=== PATIENT | female | born 1930 | race Caucasian/White ===

== ENCOUNTER 2019-09-16 16:11 | Inpatient (IN) | payer MEDICARE ==
[~2019-09-16] VITALS: Ht 162.6 cm; Wt 74.4 kg
--- NOTE | 2019-09-16 16:15 | NUR ---
PT BIB STAFF FROM [facility] C/O AGGRESSIVE BEHAVIOR TOWARDS STAFF, PT IS AAOX3, NOT IN RESPIRATORY DISTRESS, HOOKED TO MONITOR, KEPT RESTED AND COMFORTABLE, WILL CONTINUE TO MONITOR.
--- NOTE | 2019-09-16 16:29 | NUR ---
SEEN AND EXAMINED BY
[2019-09-16 17:11] LABS: BASOPHILS # (AUTO) 0.1 /CMM (0.0-0.2); BASOPHILS % (AUTO) 0.9 % (0.0-2.0); EOSINOPHILS % (AUTO) 1.8 % (0.0-6.0); HEMATOCRIT 36 % (33-45); HEMOGLOBIN 11.8 g/dL (11.5-14.8); LYMPHOCYTES # (AUTO) 1.7 /CMM (0.8-4.8); MEAN CORPUSCULAR HGB CONC 33 g/dl (31.0-36.0); MEAN CORPUSCULAR VOLUME 101 fL (82-100); MONOCYTES % (AUTO) 16.8 % (2.0-12.0); NEUTROPHILS # (AUTO) 3.3 /CMM (1.8-8.9); NEUTROPHILS % (AUTO) 52.5 % (43.0-81.0); PLATELET COUNT (AUTO) 231 /CMM (150-450); RED BLOOD CELL COUNT(AUTO) 3.57 MIL/uL (4.0-5.2); WHITE BLOOD COUNT (AUTO) 6.2 K/uL (4.3-11.0)
[2019-09-16 17:21] LABS: CALCIUM, SERUM 8.6 mg/dL (8.5-10.1); CARBON DIOXIDE 28 mmol/L (21-32); CHLORIDE 103 mmol/L (98-107); CREATININE 0.9 mg/dL (0.6-1.3); GLUCOSE 106 mg/dL (74-106); POTASSIUM 4.3 mmol/L (3.5-5.1); SODIUM SERUM 138 mmol/L (136-145); UREA NITROGEN, BLOOD 17 mg/dL (7-18)
--- NOTE | 2019-09-16 17:31 | NUR ---
GPS 213-B
[2019-09-16 17:36] LABS: ACETAMINOPHEN 0 ug/ml (10-30); ALANINE AMINOTRANSFERASE 17 U/L (12-78); ALBUMIN 3.2 g/dL (3.4-5.0); ALCOHOL, BLOOD < 3 mg/dL (0-0); ALKALINE PHOSPHATASE 67 U/L (46-116); ASPARTATE AMINOTRANSFERASE 16 U/L (15-37); BILIRUBIN,DIRECT 0.1 mg/dL (0.0-0.2); BILIRUBIN,TOTAL 0.5 mg/dL (0.2-1.0); SALICYLATE 0.7 mg/dL (2.8-20.0)
--- NOTE | 2019-09-16 17:41 | NUR ---
URINE SPECIMEN COLLECTED AND SENT TO LAB.
[2019-09-16 17:54] LABS: APPEARANCE,URINE Cloudy (CLEAR); BILIRUBIN,URINE Negative (NEGATIVE); BLOOD, URINE Trace-lysed Ery/uL (NEGATIVE); COLOR,URINE Yellow (YELLOW); KETONES,URINE Negative (NEGATIVE); LEUKOCYTE ESTERASE ,URINE Moderate (NEGATIVE); NITRITE, URINE Negative (NEGATIVE); PROTEIN,URINE Negative (NEGATIVE); UGLUCOSE Negative (NEGATIVE); UROBILINOGEN,URINE 0.2 EU/dL (0.2)
[2019-09-16 18:03] LABS: BACTERIA,URINE Many /HPF (None Seen); SQUAMOUS EPITHELIAL CELL,UR Few /HPF (None Seen)
[2019-09-16 18:04] LABS: RBC,URINE 0-2 /HPF (0-2); WBC,URINE 21-50 /HPF (0-3)
[2019-09-16 18:06] LABS: NEUTROPHILS % (MANUAL) 53 (42-76)
[2019-09-16 18:07] LABS: EOSINOPHILS % (MANUAL) 1 % (0-4); LYMPHOCYTES % (MANUAL) 30 % (16-48); MONOCYTES % (MANUAL) 16 % (0-11.0)
--- NOTE | 2019-09-16 19:00 | NUR ---
RAISA ON THE WAY TO WRITE [id number]
--- NOTE | 2019-09-16 19:17 | NUR ---
TOOK OVER PT CARE, PT PLACED ON MONITOR AND PULSE OX. VSS.
--- NOTE | 2019-09-16 19:22 | NUR ---
AWAITING CRISIS TEAM FOR HOLD PLACEMENT.
[2019-09-16] MEDS ORDERED: VITA1TAB56 PO (20:17)
[2019-09-16] MEDS ORDERED: ACET-2605 PO (20:17)
[2019-09-16] MEDS ORDERED: MULT-447 PO (20:17)
[2019-09-16] MEDS ORDERED: MELA5TAB PO (20:17)
--- NOTE | 2019-09-16 20:39 | NUR ---
REPORT GIVEN TO GPS. PT TRANSFERED.
[2019-09-16] MEDS ORDERED: MAGNESIUM HYDROXIDE 30 ML UDC PO PRN (21:00)
[2019-09-16] MEDS ORDERED: ACETAMINOPHEN 325 MG TABLET PO PRN (21:00)
[2019-09-16] MEDS ORDERED: BLOOD SUGAR DIAGNOSTIC 1 EACH STRIP IN ONE (21:00)
[2019-09-16] MEDS ORDERED: MAG HYDROX/AL HYDROX/SIMETH 30 ML UDC PO PRN (21:00)
--- NOTE | 2019-09-16 21:00 | NUR ---
GPS SUPPORT TECHNICIAN NOTES: ADMITTED 88 Y/O FEMALE. PT ADMITTED FROM [facility]. PT ADMITTED FROM [facility] TO GPS ON A 5150 GD AND DTO. PER HOLD, PT WAS BROUGHT IN BY STAFF FROM [facility] DUE TO INCREASE AGGRESSION, STRIKING OUT ON STAFF, THROWING COFFEE TO OTHER STAFF AT THE FACILITY, REFUSING CARE, DESCRIPTIVE, NON DIRECTABLE, DELUSIONAL MAKING FALSE ACCUSATION, NON COMPLAINT WITH MEDICATION, AND CONFUSED. UPON FACE TO FACE ASSESSMENT PT IS ALERT ORIENTED X 1-2, UNCOOPERATIVE, ANGRY, DEPRESSED, FORGETFUL, CONFUSED, DISORGANIZED, NEEDY, EASILY AGITATED, AND GUARDED. PT STATED SHE DOES NOT KNOW WHY SHE IS HERE AND DOESN'T THINK SHE SHOULD BE HERE. PT OVERESTIMATES HERSELF IN REGARDS TO WALKING ON HER OWN OR BY HERSELF. PT IS AMBULATORY WITH UNSTEADY GAIT. PT CONSULT ORDERED FOR EVALUATION. BED LOCKED, LOW, AND 2 SIDE RAILS UP FOR SAFETY. BED ALARM ON. PT ROMERO SI/ HI AT THIS TIME. PT STATED SHE HAS NO FAMILY AND SHE HAS SOME FRIENDS BUT REFUSES TO SAY THE NAMES. PT UNABLE TO SIGN NECESSARY PAPER WORK DUE TO REFUSAL. ENVIRONMENTAL SAFETY CHECK DONE Q15. ENCOURAGE PT VERBALIZE FEELINGS AND CONCERNS TO STAFF. ORIENTED PT TO THE UNIT. [facility] NOTIFIED OF ADMISSION AND FOR MED RECON. DR WARD AWARE OF PTS ADMISSION WELL. BELONGING AND CONTRABAND WERE DONE. NURSING ASSESSMENT WERE DONE. NURSING ASSESSMENT DONE. PT REFUSED SKIN ASSESSMENT AND PICTURES. PT STATED, "I DONT WANT YOU TO TOUCH ME LEAVE ME ALONE NOW!" EXPLAIN RISKS AND BENEFITS. PT STILL REFUSED X3. PICTURE OF PT FACE WERE FILED IN PT CHERT FOR IDENTIFICATION. PT RIGHTS DISCUSSED BY SENIOR SOFTWARE PROJECT MANAGER. PROVIDED PT WITH HANDBOOK AND MED GUIDE, VITALS TAKEN WNL. NO S/S OF RESP DISTRESS. INITIAL BLOOD SUGAR CHECK DONE. BREATHING EVEN AND UNLABORED. NO S/S OF SOB. CONTINUE TO MONITOR.
[2019-09-16 23:59] VITALS: BP 167/81
[2019-09-17 07:49] LABS: CREATININE 0.8 mg/dL (0.6-1.3)
[2019-09-17 07:54] LABS: CHOLESTEROL 151 mg/dL (<200); HDL CHOLESTEROL 61 mg/dL (40-60); LDL 81 mg/dL (0-99); TRIGLYCERIDES 68 mg/dL (30-150)
[2019-09-17] MEDS: VITAMIN B COMP W-C 1 TAB TABLET PO SCH (08:20)
[2019-09-17] MEDS: MULTIVIT W/MINERALS 1 TAB TABLET PO SCH (08:20)
--- NOTE | 2019-09-17 15:04 | NUR ---
SNF Contact: FREDERICK called Krissy ([phone]) from [facility] who confirmed that the pt can return to the facility once she is stable for discharge.
--- NOTE | 2019-09-17 15:54 | NUR ---
Initial Discharge Plan: Pt currently resides at [facility] located at [address] [place] [address]; ([phone]). Per pt, she is too confused to state where she would like to be discharged. SW will work with the pt and the MD regarding appropriate discharge planning. SW will form a safe and proper discharge.
--- NOTE | 2019-09-17 16:23 | NUR ---
Individual Intervention: SW attempted to have an individual therapy with the pt but the pt is hard of hearing, disorganized, confused and disoriented. Pts speech is tangential and the pt is rambling and nonsensical. Pt is deemed not appropriate for therapy at this time.
[2019-09-17] MEDS ORDERED: Medication Not On Formulary EA (Melatonin 10 MG) PO SCH (18:00)
[2019-09-17] MEDS: RIVASTIGMINE TARTRATE 1.5 MG CAPSULE PO SCH (21:00)
[2019-09-17] MEDS: risperiDONE 0.25 MG TABLET PO SCH (21:00)
--- NOTE | 2019-09-17 21:35 | NUR ---
GPS RN NOTE: MEDICATION REFUSAL PT. REFUSED SCHEDULED 2100 MEDICATIONS, EXELON 1.5 MG PO AND RISPERDAL 0.25 MG PO. PT. STATES " I DON'T NEED THOSE" EDUCATION PROVIDED. EXPLAINED RISKS AND BENEFITS. OFFERED 3X, PT. STILL REFUSED. WILL CONTINUE TO MONITOR
[2019-09-18 08:00] VITALS: BP 133/78
--- NOTE | 2019-09-18 08:00 | NUR ---
RECEIVED PATIENT IN HER ROOM, RESTLESS IN BED WALKING WITH UNSTEADY GAIT INSIDE HER ROOM WITH ASSIST.HOLDING ON TO THE BED AND TABLE.PT IS HARD OF HEARING WHICH IS THE REAON WHY SHE SPEAKS TOO LOUD DISTURBING HER ROOMATE., NO S/S OF ANY DISTRESS NOTED, NO C/O PAIN OR ANY DISCOMFORT. A&OX1, CONFUSED,DISORIENTED, DISORGANIZED, FORGETFUL, REDIRECTABLE, CALM, COOPERATIVE, MED COMPLIANT, DENIES SI/HI AT THIS TIME. FALL PRECAUTIONS IMPLEMENTED.NEEDS ATTENDED AND ANTICIPATED. WILL CONTINUE TO MONITOR Q15 MINS FOR SAFETY AND BEHAVIOR.
[2019-09-18] MEDS: VITAMIN B COMP W-C 1 TAB TABLET PO SCH (08:47)
[2019-09-18] MEDS: RIVASTIGMINE TARTRATE 1.5 MG CAPSULE PO SCH ×2 (08:48→21:51)
[2019-09-18] MEDS: MULTIVIT W/MINERALS 1 TAB TABLET PO SCH (08:48)
[2019-09-18] MEDS: LORAZEPAM 0.5 MG TABLET PO PRN (08:48)
[2019-09-18] MEDS: risperiDONE 0.25 MG TABLET PO SCH ×2 (08:48→21:51)
[2019-09-18] MEDS: NITROFURANTOIN/NITROFURAN MAC 100 MG CAPSULE PO SCH ×2 (11:45→21:58)
--- NOTE | 2019-09-18 12:06 | NUR ---
INDIVIDUAL INTERVENTION: SW attempted to have an individual therapy with the pt at bedside. However, SW was unable to engage pt in conversation due to pt being hard of hearing, disorganized, confused and disoriented. Pts speech is tangential and the pt is rambling and nonsensical. Pt is deemed not appropriate for therapy at this time.
[2019-09-18 15:59] VITALS: BP 150/73
[2019-09-18 20:00] VITALS: BP 143/67
--- NOTE | 2019-09-18 21:59 | NUR ---
GPS RN NOTE ADMINISTERED NITROFURANTOIN 100MG 1 CAP PO ORDERED. WON'T SCAN SO ENTERED MANUALLY.
--- NOTE | 2019-09-19 07:34 | NUR ---
GPS RN OPENING NOTE: RECEIVED PATIENT IN BED TALKING TO SELF. APPEARS TO HAVE AUDITORY HALLUCINATIONS SHE SOUNDS LIKE SHE IS HAVING CONVERSATION WITH SOMEONE. PATIENT IS UNCOOPERATIVE, BELLIGERENT, AND EASILY AGITATED. BREATHING IS EVEN AND UNLABORED. NO SIGNS OF PHYSICAL DISTRESS. BED IN LOCKED AND LOW POSITION WITH 2 SIDE RAILS UP FOR SAFETY. WILL CONTINUE TO MONITOR Q15 FOR MOOD, SAFETY AND BEHAVIOR.
[2019-09-19 08:00] VITALS: BP 161/78
[2019-09-19] MEDS: NITROFURANTOIN/NITROFURAN MAC 100 MG CAPSULE PO SCH ×2 (09:00→21:50)
[2019-09-19] MEDS: LORAZEPAM 0.5 MG TABLET PO PRN (09:11)
[2019-09-19] MEDS: VITAMIN B COMP W-C 1 TAB TABLET PO SCH (09:11)
[2019-09-19] MEDS: risperiDONE 0.25 MG TABLET PO SCH (09:11)
[2019-09-19] MEDS: MULTIVIT W/MINERALS 1 TAB TABLET PO SCH (09:11)
[2019-09-19] MEDS: RIVASTIGMINE TARTRATE 1.5 MG CAPSULE PO SCH ×2 (09:11→21:48)
--- NOTE | 2019-09-19 09:25 | NUR ---
unable to scan macrobid - Unknown [facility] number. Administered as ordered
[2019-09-19 16:00] VITALS: BP 150/81
[2019-09-19 20:00] VITALS: BP 155/82
[2019-09-19] MEDS: risperiDONE 1 MG TABLET PO SCH (21:48)
[2019-09-19] MEDS: TEMAZEPAM 7.5 MG CAPSULE PO PRN (22:14)
[2019-09-20 08:00] VITALS: BP 141/87
[2019-09-20] MEDS: risperiDONE 1 MG TABLET PO SCH ×2 (08:32→21:42)
[2019-09-20] MEDS: MULTIVIT W/MINERALS 1 TAB TABLET PO SCH (08:32)
[2019-09-20] MEDS: VITAMIN B COMP W-C 1 TAB TABLET PO SCH (08:32)
[2019-09-20] MEDS: NITROFURANTOIN/NITROFURAN MAC 100 MG CAPSULE PO SCH ×2 (08:33→21:43)
[2019-09-20] MEDS: RIVASTIGMINE TARTRATE 1.5 MG CAPSULE PO SCH ×2 (08:33→21:43)
--- NOTE | 2019-09-20 08:33 | NUR ---
RN NOTE- MACROBID 100 MG CAPSULE GIVEN AT THIS TIME. DOESN'T SCAN.
--- NOTE | 2019-09-20 09:00 | NUR ---
RN NOTE- PT AWAKE IN MICHELLE CHAIR, ALERT, ORIENTED TO PERSON PLACE. CONFUSED, IRRITABLE AT TIMES AND LAUGHING LOUD AND INAPPROPRIATELY WELL. PO INTAKE GOOD, GOOD EYE CONTACT, ASKS QUESTIONS PERTAINING TO STAY AND DURATION. DENYING SI HI AH VH. PT OVER ESTIMATES HER ABILITIES IN ADLS. REQUIRING STAND BY ASSIST W ALL.
[2019-09-20 16:00] VITALS: BP 136/81
[2019-09-20 19:58] VITALS: BP 150/76
[2019-09-20] MEDS: TEMAZEPAM 7.5 MG CAPSULE PO PRN (22:14)
[2019-09-21] MEDS: LORAZEPAM 0.5 MG TABLET PO PRN ×3 (07:42→21:23)
--- NOTE | 2019-09-21 07:43 | NUR ---
RN NOTE- PT AGITATED, GETTING UP ON HER OWN, NOT DIRECTABLE, YELLING.. ATIVAN 0.5 MG GIVEN. PLACED IN MICHELLE CHAIR
[2019-09-21 08:00] VITALS: BP 119/73
[2019-09-21] MEDS: MULTIVIT W/MINERALS 1 TAB TABLET PO SCH (08:37)
[2019-09-21] MEDS: VITAMIN B COMP W-C 1 TAB TABLET PO SCH (08:37)
[2019-09-21] MEDS: RIVASTIGMINE TARTRATE 1.5 MG CAPSULE PO SCH ×2 (08:37→21:20)
[2019-09-21] MEDS: NITROFURANTOIN/NITROFURAN MAC 100 MG CAPSULE PO SCH ×2 (08:38→21:20)
[2019-09-21] MEDS: risperiDONE 1 MG TABLET PO SCH ×2 (08:38→21:21)
--- NOTE | 2019-09-21 08:38 | NUR ---
RN NOTE- MACROBID 100MG CAP GIVEN. DOESN'T SCAN
--- NOTE | 2019-09-21 09:00 | NUR ---
RN NOTE- PT YELLING DIFFICULT AT START OF SHIFT. PT TRYING TO GET OOB AND WALK ON HER OWN. UNSAFE AND UNSTEADY. PO INTAKE GOOD. 100% MEAL CONSUMED. MED COMPLIANT. DENIES AL. PT OPPOSITIONAL TO CARE AND IRRITABLE. ATIVAN EFFECTIVELY DECREASE AGITATION
[2019-09-21 16:00] VITALS: BP 122/66
[2019-09-21 20:00] VITALS: BP 113/58
--- NOTE | 2019-09-21 21:24 | NUR ---
Pt agitated and yelling. Ativan 0.5 mg po prn given as ordered. Will continue to monitor.
[2019-09-21] MEDS: risperiDONE 0.25 MG TABLET PO SCH (22:00)
--- NOTE | 2019-09-21 22:23 | NUR ---
Post 1 hr Ativan effective. Pt calm. Refused new order medication Risperdal 0.75mg po. States, " I just took that med Risperdal 0.5 mg an hour ago". Offered x3 still refused. Risk and benefits explained. Will continue to monitor.
--- NOTE | 2019-09-22 07:24 | NUR ---
GPS RN NOTE: OPENING RECEIVED PATIENT UP IN MICHELLE CHAIR, AGITATED. ALERT AND ORIENTED X1-2. WEARING DIAPER. RASTA CARE RENDERED. DENIES SI/HI AND VAH. PATIENT BREATHING IS EVEN AND UNLABORED WITH EQUAL RISE AND FALL OF CHEST. SAFETY PRECAUTIONS IN PLACE - BED IN LOW AND LOCKED POSITION WITH 2 SIDE RAILS UP FOR SAFETY. WILL CONTINUE TO MONITOR Q15 FOR MOOD, SAFETY AND BEHAVIOR.
[2019-09-22 08:00] VITALS: BP 143/78
[2019-09-22] MEDS: VITAMIN B COMP W-C 1 TAB TABLET PO SCH (08:53)
[2019-09-22] MEDS: MULTIVIT W/MINERALS 1 TAB TABLET PO SCH (08:53)
[2019-09-22] MEDS: NITROFURANTOIN/NITROFURAN MAC 100 MG CAPSULE PO SCH ×2 (08:53→21:21)
[2019-09-22] MEDS: RIVASTIGMINE TARTRATE 1.5 MG CAPSULE PO SCH ×2 (08:53→21:21)
[2019-09-22] MEDS: risperiDONE 0.25 MG TABLET PO SCH ×2 (09:00→21:21)
--- NOTE | 2019-09-22 12:01 | NUR ---
INDIVIDUAL INTERVENTION: SW attempted to have an individual therapy with the pt at bedside. Pt was asleep and not easily aroused by verbal cues.
[2019-09-22 16:00] VITALS: BP 155/68
[2019-09-22 20:09] VITALS: BP 136/73
[2019-09-23 08:00] VITALS: BP 155/74
[2019-09-23] MEDS: RIVASTIGMINE TARTRATE 1.5 MG CAPSULE PO SCH ×2 (09:06→21:22)
[2019-09-23] MEDS: risperiDONE 0.25 MG TABLET PO SCH (09:06)
[2019-09-23] MEDS: VITAMIN B COMP W-C 1 TAB TABLET PO SCH (09:06)
[2019-09-23] MEDS: MULTIVIT W/MINERALS 1 TAB TABLET PO SCH (09:07)
[2019-09-23] MEDS: NITROFURANTOIN/NITROFURAN MAC 100 MG CAPSULE PO SCH (09:08)
--- NOTE | 2019-09-23 09:24 | NUR ---
FRIEND CONTACT: SW received a voicemail from pts family friend Isiah [phone] requesting an update on pts discharge plan. SW returned call and left a voicemail for callback.
[2019-09-23] MEDS ORDERED: Z GUARD REMEDY 2 OZ OINT TP PRN (11:00)
[2019-09-23] MEDS: LORAZEPAM 0.5 MG TABLET PO PRN (12:44)
--- NOTE | 2019-09-23 12:44 | NUR ---
RN NOTE- PT ATTEMPTING TO AMBULATE WITHOUT WALKER TO BR, TEARING OFF DIAPER, SCREAMING AT STAFF AND OPPOSITIONAL TO ALL CARE AND REDIRECTION. PLACED IN GERICHAIR AND PT CONTINUES YELLING. ATIVAN 0.5 MG GIVEN.
--- NOTE | 2019-09-23 15:19 | NUR ---
INDIVIDUAL INTERVENTION: Pt was sitting in a marleny-chair in the activity room. Pt was yelling saying nonsensical statements. Pt appeared agitated. Pt is confused, disorganized, and disoriented and has cognitive impairment. Pt is only alert and oriented to self.
[2019-09-23 16:00] VITALS: BP 144/77
--- NOTE | 2019-09-23 19:15 | NUR ---
GPS RN OPENING NOTE: PATIENT UP IN GERICHAIR. EASILY AGITATED. A&OX1, CONFUSED, DISORIENTED, DISORGANIZED, FORGETFUL, REDIRECTABLE, CALM, COOPERATIVE. DENIES SI/HI AT THIS TIME. FALL PRECAUTIONS IMPLEMENTED. ALL NEEDS ATTENDED AND ANTICIPATED. WILL CONTINUE TO MONITOR Q15 MINS FOR SAFETY AND BEHAVIOR.
[2019-09-23 20:19] VITALS: BP 139/75
[2019-09-23] MEDS: risperiDONE 1 MG TABLET PO SCH (21:22)
--- NOTE | 2019-09-23 22:20 | NUR ---
GPS RN NOTE: INSOMNIA PT. C/O UNABLE TO SLEEP. ADMINISTERED RESTORIL PO PRN. WILL CONTINUE TO MONITOR FOR SAFETY AND BEHAVIOR
[2019-09-23] MEDS: TEMAZEPAM 7.5 MG CAPSULE PO PRN (22:23)
[2019-09-24 08:00] VITALS: BP 138/56
[2019-09-24] MEDS: RIVASTIGMINE TARTRATE 1.5 MG CAPSULE PO SCH ×2 (08:46→21:51)
[2019-09-24] MEDS: MULTIVIT W/MINERALS 1 TAB TABLET PO SCH (08:46)
[2019-09-24] MEDS: VITAMIN B COMP W-C 1 TAB TABLET PO SCH (08:46)
[2019-09-24] MEDS: risperiDONE 1 MG TABLET PO SCH ×2 (09:40→21:51)
[2019-09-24 16:00] VITALS: BP 143/59
--- NOTE | 2019-09-24 16:08 | NUR ---
Friend Contact: SW received a voicemail from pts family friend, Isiah ([phone]), and the SW informed him on the pts current behaviors and the pts medications. SW also expressed to him that the discharge plan is for the pt to return to [facility]. Pts friend expressed that he wants to make sure that she is not discharged back to her apartment or to an alternative placement. SW stated that once there is a discharge plan he will be notified.
[2019-09-24] MEDS: TEMAZEPAM 7.5 MG CAPSULE PO PRN (23:11)
[2019-09-25 08:00] VITALS: BP 147/76
[2019-09-25] MEDS: VITAMIN B COMP W-C 1 TAB TABLET PO SCH (08:04)
[2019-09-25] MEDS: RIVASTIGMINE TARTRATE 1.5 MG CAPSULE PO SCH ×2 (08:04→21:42)
[2019-09-25] MEDS: MULTIVIT W/MINERALS 1 TAB TABLET PO SCH (08:04)
[2019-09-25] MEDS: risperiDONE 1 MG TABLET PO SCH ×2 (10:27→21:42)
--- NOTE | 2019-09-25 12:17 | NUR ---
Individual Intervention: SW met with the pt at bedside. Pt appeared agitated. Pt is confused, disorganized, and disoriented and has cognitive impairment. Pt is only alert and oriented to self.
[2019-09-25 16:00] VITALS: BP 127/57
[2019-09-25 20:15] VITALS: BP 126/60
[2019-09-25] MEDS: TEMAZEPAM 7.5 MG CAPSULE PO PRN (22:29)
[2019-09-26] MEDS: RIVASTIGMINE TARTRATE 1.5 MG CAPSULE PO SCH ×2 (08:30→21:09)
[2019-09-26] MEDS: MULTIVIT W/MINERALS 1 TAB TABLET PO SCH (08:30)
[2019-09-26] MEDS: VITAMIN B COMP W-C 1 TAB TABLET PO SCH (08:30)
[2019-09-26] MEDS: risperiDONE 1 MG TABLET PO SCH ×2 (10:06→21:09)
--- NOTE | 2019-09-26 13:21 | NUR ---
INDIVIDUAL INTERVENTION: SW attempted to have an individual therapy with the pt at bedside. Pt was asleep and not easily aroused by verbal cues.
[2019-09-26 16:03] VITALS: BP 121/59
[2019-09-26] MEDS: LORAZEPAM 0.5 MG TABLET PO PRN (16:08)
--- NOTE | 2019-09-26 16:10 | NUR ---
GPS/RN-NOTES PATIENT IN THE DAY ROOM NOTED WITH AGITATION, SCREAMING AND YELLING LOUD,UNABLE TO REDIRECT. ATIVAN 0.5MG P.O GIVEN PRN ORDER. WILL CONT. MONITORING FOR SAFETY AND BEHAVIOR.
[2019-09-26 20:00] VITALS: BP 129/62
[2019-09-27 08:00] VITALS: BP 116/58
[2019-09-27] MEDS: MULTIVIT W/MINERALS 1 TAB TABLET PO SCH (09:53)
[2019-09-27] MEDS: risperiDONE 1 MG TABLET PO SCH ×2 (09:53→21:48)
[2019-09-27] MEDS: VITAMIN B COMP W-C 1 TAB TABLET PO SCH (09:53)
[2019-09-27] MEDS: RIVASTIGMINE TARTRATE 1.5 MG CAPSULE PO SCH ×2 (09:53→21:48)
[2019-09-27] MEDS: LORAZEPAM 0.5 MG TABLET PO PRN ×2 (12:29→22:38)
--- NOTE | 2019-09-27 12:29 | NUR ---
GPS/RN-NOTES PATIENT IN THE ROOM NOTED WITH AGITATION,HITTING STAFF WITH BOTH HANDS, SCREAMING AND YELLING LOUD,UNABLE TO REDIRECT. ATIVAN 0.5MG P.O GIVEN PRN ORDER. WILL CONT. MONITORING FOR SAFETY AND BEHAVIOR.
--- NOTE | 2019-09-27 13:30 | NUR ---
GPS/RN-NOTES PATIENT STILL IN THE DAY ROOM,AWAKE,ALERT CALM NO ACUTE DISTRESS NOTED.
[2019-09-27 16:00] VITALS: BP 156/91
[2019-09-27 20:00] VITALS: BP 143/64
--- NOTE | 2019-09-27 22:39 | NUR ---
GPS-RN NOTE: SCREAMING/YELLING INTERMITTENTLY PATIENT IS ANXIOUS AND RESTLESS. WITH EPISODES OF GETTING UP AND DOWN IN BED. PATIENT REMAINS CONFUSED UNABLE TO FOLLOW SIMPLE DIRECTIONS. SCREAMING AND YELLING INTERMITTENTLY. ADMINISTERED ATIVAN 0.5MG PO ORDERED. WILL CONTINUE TO MONITOR FOR PT'S SAFETY.
[2019-09-28 08:00] VITALS: BP 150/94
[2019-09-28] MEDS: VITAMIN B COMP W-C 1 TAB TABLET PO SCH (08:24)
[2019-09-28] MEDS: RIVASTIGMINE TARTRATE 1.5 MG CAPSULE PO SCH ×2 (08:24→21:19)
[2019-09-28] MEDS: MULTIVIT W/MINERALS 1 TAB TABLET PO SCH (08:25)
[2019-09-28] MEDS: risperiDONE 1 MG TABLET PO SCH ×2 (10:01→21:19)
[2019-09-28 16:00] VITALS: BP 122/63
[2019-09-28] MEDS: LORAZEPAM 0.5 MG TABLET PO PRN ×2 (16:15→23:27)
--- NOTE | 2019-09-28 16:16 | NUR ---
GPS/RN-NOTES PATIENT IN THE DAY ROOM , SCREAMING AND YELLING LOUD,UNABLE TO REDIRECT. ATIVAN 0.5MG P.O GIVEN PRN ORDER. WILL CONT. MONITORING FOR SAFETY AND BEHAVIOR.
[2019-09-28 20:30] VITALS: BP 140/91
[2019-09-28] MEDS: TEMAZEPAM 7.5 MG CAPSULE PO PRN (21:20)
--- NOTE | 2019-09-28 21:21 | NUR ---
Pt unable to sleep. Least restrictive measures ineffective. Restoril 7.5 mg po prn given as ordered. Will continue to monitor.
--- NOTE | 2019-09-28 22:21 | NUR ---
Post 1 hr restoril effective. Pt asleep easy to arouse. Will continue to monitor.
--- NOTE | 2019-09-28 23:28 | NUR ---
Pt anxious and agitated. Least restrictive measures ineffective. Ativan 0.5 mg po prn given as ordered. Will continue to monitor.
--- NOTE | 2019-09-29 00:30 | NUR ---
Post 1 hr Ativan effective. Pt asleep in bed easy to arouse. Will continue to monitor.
[2019-09-29 08:00] VITALS: BP 145/76
[2019-09-29] MEDS: RIVASTIGMINE TARTRATE 1.5 MG CAPSULE PO SCH ×2 (08:39→21:37)
[2019-09-29] MEDS: VITAMIN B COMP W-C 1 TAB TABLET PO SCH (08:40)
[2019-09-29] MEDS: MULTIVIT W/MINERALS 1 TAB TABLET PO SCH (08:40)
--- NOTE | 2019-09-29 09:00 | NUR ---
RN NOTE- RECEIVED PATIENT IN BEED AWAKE,ALERT,NO ACUTE DISTRESS NOTED. NOTED PATIENT WITH EASILY ANGRY ,SCREAMING AND YELLING AT STAFF. NEEDS REDIRECTIONS AND REORIENTATIONS.COMPLIANT WITH MEDICATIONS. ALL NEEDS ATTENDED AND ANTICIPATED. WILL CONT. MONITORING Q15 MINS. FOR SAFETY AND BEHAVIOR.
[2019-09-29] MEDS: risperiDONE 1 MG TABLET PO SCH ×2 (10:05→21:36)
[2019-09-29 20:03] VITALS: BP 129/61
[2019-09-30 08:00] VITALS: BP 114/53
--- NOTE | 2019-09-30 09:00 | NUR ---
RN NOTE- PT SLEEPING EASILY AROUSABLE, CALM ON AWAKENING NO BEHAVIORAL ISSUES PO INTAKE MINIMAL THIS AM. MED COMPLIANT
[2019-09-30] MEDS: risperiDONE 1 MG TABLET PO SCH ×2 (09:27→21:00)
[2019-09-30] MEDS: RIVASTIGMINE TARTRATE 1.5 MG CAPSULE PO SCH ×2 (09:27→20:48)
[2019-09-30] MEDS: MULTIVIT W/MINERALS 1 TAB TABLET PO SCH (09:28)
[2019-09-30] MEDS: VITAMIN B COMP W-C 1 TAB TABLET PO SCH (09:28)
--- NOTE | 2019-09-30 09:38 | NUR ---
Facility Contact: FREDERICK contacted Krissy ([phone]), clinical coordinator from [facility], and informed her that a COVID test was never done for this pt. She stated that [facility] is necessary for a read[facility].
--- NOTE | 2019-09-30 09:39 | NUR ---
[facility] Contact: Regarding COVID 19 testing, SW called the [facility] COVID 19 line ([phone]) and spoke to Tonya who stated that they have a written rule regarding pts readmitting to facilities from hospitals requiring testing. She stated that the [facility] is allowing the facilities to make the decisions on what it is that they are requiring for a pt to return to their facility.
--- NOTE | 2019-09-30 09:41 | NUR ---
Facility Contact: FREDERICK contacted Krissy ([phone]), offensive coordinator from [facility], and informed her that she spoke to the [facility] employee relations representative on the COVID 19 line and was informed that the facility has the right to decide. Therefore, FREDERICK asked the pts nurse to request a COVID 19 test for readmission to their facility. FREDERICK informed her that this would delay the pts discharge.
--- NOTE | 2019-09-30 14:15 | NUR ---
Friend Contact: FREDERICK called pts family friend, Isiah ([phone]), and informed him that the pt was not discharged today due to the facility needing a COVID test. FREDERICK stated that she will call him when she has a discharge date.
[2019-09-30 16:00] VITALS: BP 100/60
--- NOTE | 2019-09-30 18:00 | NUR ---
COVID CULTURE RT NARES TAKEN BY THIS RN IN PT ROOM W PRODUCT MARKETING SPECIALIST AND RN ASSIST. SENT TO LAB
[2019-09-30 20:17] VITALS: BP 140/71
--- NOTE | 2019-10-01 06:53 | NUR ---
RN NOTES, NO SIGNIFICANTS CHANGE IN CONDITION, PATIENT COMPLAIN WITH CARE, NO DISRUPTIVE BEHAVIOR EXHIBITED, ADEQUATE HORS OF SLEEP, CONFUSED AT TIMES, WILL ENDORSED CONTINUITY OF CARE TO ONCOMING NURSE.
[2019-10-01 08:00] VITALS: BP_SYST 123; BP_SYST 131; BP_DIAS 57; BP_DIAS 59
[2019-10-01] MEDS: VITAMIN B COMP W-C 1 TAB TABLET PO SCH (08:42)
[2019-10-01] MEDS: MULTIVIT W/MINERALS 1 TAB TABLET PO SCH (08:42)
[2019-10-01] MEDS: RIVASTIGMINE TARTRATE 1.5 MG CAPSULE PO SCH ×2 (08:42→21:40)
[2019-10-01] MEDS: risperiDONE 1 MG TABLET PO SCH ×2 (10:04→21:40)
--- NOTE | 2019-10-01 13:07 | NUR ---
Facility Contact: FREDERICK contacted Krissy ([phone]), admissions director from [facility], and informed her that the pts COVID results are still pending.
--- NOTE | 2019-10-01 15:54 | NUR ---
Individual Counseling: SW met with the pt. in the activities room to engage in individual counseling. However, the pt. presented with agitation, is confused, and disorganized. Pt. not a candidate for counseling.
[2019-10-01 20:10] VITALS: BP 143/69
[2019-10-01] MEDS: TEMAZEPAM 7.5 MG CAPSULE PO PRN (22:12)
[2019-10-02 08:00] VITALS: BP 144/60
--- NOTE | 2019-10-02 09:20 | NUR ---
DISCHARGE NOTE: Pt will be discharged at 11:00am via facility transport to [facility] ([facility] located at [address] [place] [id number] . Pts family friend, Isiah ([phone]) has been notified via voicemail. Pts mood is euthymic with congruent affect. Pt denied visual/auditory hallucinations and denied suicidal/homicidal ideation. Pt will be under the care of Psychiatrist: Dr. Marce Galindo [address], [place] [address] [phone] and Instructional Specialist: Dr. Steward located at [address] [place] [address] [id number], [place] [address]; . The multidisciplinary exit care form was done, printed, signed, and given to the patient. Addendum: 10/02/19 at 1208 by JULES MACK FREDERICK received a call from the facility stating that pt will be picked up at 1500.
[2019-10-02] MEDS: RIVASTIGMINE TARTRATE 1.5 MG CAPSULE PO SCH (09:50)
[2019-10-02] MEDS: MULTIVIT W/MINERALS 1 TAB TABLET PO SCH (09:50)
[2019-10-02] MEDS: VITAMIN B COMP W-C 1 TAB TABLET PO SCH (09:50)
[2019-10-02] MEDS: risperiDONE 1 MG TABLET PO SCH (09:50)
--- NOTE | 2019-10-02 10:26 | NUR ---
Dr. Taveras gave an order to D/C hold and D/C to [facility] ([facility]) and to continue same meds including prn and follow up with the psychiatrist Dr. Marce Mendoza at [address], [place] [address] with the tel# [phone] and to follow up with the buggyman Dr. Steward at [address] [place] [address] [id number], [place] [address] with the tel# [phone]. Pt. admitted on 5150 for DTO and GD. Addendum: 10/02/19 at 1541 by JENNIFER ARIZA RN Pt. without distress, denies suicidal and homicidal and stable for discharge.
--- NOTE | 2019-10-02 15:20 | NUR ---
GPS/RN-NOTES PATIENT DISCHARGE TO [facility] TODAY. AND MEHUL JOYA AWARE AND AGREED OF THE DISCHARGE. PATIENT DID NOT VERBALIZE SI/HI,DENIES VISUAL/AUDITORY HALLUCINATIONS AT THE TIME OF DISCHARGE. REPORT WAS GIVEN TO [facility] ( [facility]).PATIENT LEFT THE UNIT ALERT ORIENTED X2 NEED ASSIST WITH AMBULATION. PATIENT WAS DECATOR OPERATOR BY FACILITY TRANSPORTATION WITH TWO STAFF ASSIST . PATIENT LEFT WITH ALL BELONGINGS WAS GIVEN BACK TO THE PATIENT. PATIENT STRONGLY REFUSED FULL BODY ASSESSMENTS PRIOR TO DISCHARGE.PER SW WORKER NOTES PATIENT FRIEND FROYLAN WAS NOTIFIED OF THE DISCHARGE.
== END 2019-10-02 15:20 | DRG 885 ==
LOC: ER 16:23 → GPS 20:36
PROVIDERS: ADMIT Psychiatry & Neurology Psychiatry; ATTEND Student in an Organized Health Care Education/Training Program
DX: F29 Unspecified psychosis not due to a substance or known physiological condition (principal); N39.0 Urinary tract infection, site not specified; F41.9 Anxiety disorder, unspecified; F03.90 Unspecified dementia, unspecified severity, without behavioral disturbance, psychotic disturbance, mood disturbance, and anxiety; I37.8 Other nonrheumatic pulmonary valve disorders; B96.20 Unspecified Escherichia coli [E. coli] as the cause of diseases classified elsewhere; F39 Unspecified mood [affective] disorder; Z91.14 Patient's other noncompliance with medication regimen
CPT/HCPCS: 36415; 80048-TC; 80061-TC; 80076-TC; 80305; 81000-TC; 82565-TC; 82962-TC; 84443-TC; 85025-TC; 87081-TC; 87086-TC; 87186-TC; 97112-TC; 97116-TC; 97530-TC; G0480